=== PATIENT | male | born 1975 | race American Indian/Alaskan Native ===

== ENCOUNTER 2019-02-16 21:38 | Emergency (ER) | payer SELFPAY ==
[2019-02-16] MEDS ORDERED: dexAMETHasone 4 MG/ML VIAL IV ONE (21:50)
[2019-02-16] MEDS ORDERED: SODIUM CHLORIDE 0.9% 1000 ML 1,000 ML IV ONE (21:50)
--- NOTE | 2019-02-16 21:54 | Event Note ---
ED Screening Note ED Screening Note: mandibular abscess concern for ludwigs trismus severe pain saw oral surg yesterday started on po antibiotics difficult to swallow This initial assessment/diagnostic orders/clinical plan/treatment(s) is/are subject to change based on patients health status, clinical progression and re- assessment by fellow clinical providers in the ED. Further treatment and workup at subsequent clinical providers discretion. Patient/guardian urged not to elope from the ED as their condition may be serious if not clinically assessed and managed. Initial orders include: labs ct
[2019-02-16 22:49] LABS: Basophils # (Auto) 0.1 K/mm3 (0.0-0.1); Basophils % (Auto) 0.9 % (0.0-1.8); Eosinophils # (Auto) 0.2 K/mm3 (0.0-0.4); Hematocrit 38.8 % (35.5-45.6); Lymphocytes # (Auto) 1.7 K/mm3 (1.2-5.4); Lymphocytes % (Auto) 30.5 % (13.4-35.0); Mean Corpuscular HGB Conc 33 % (32-34); Mean Corpuscular Volume 101 fl (84-94); Monocytes # (Auto) 0.8 K/mm3 (0.0-0.8); Monocytes % (Auto) 14.5 % (0.0-7.3); Platelet Count 244 K/mm3 (140-440); Red Blood Count 3.85 M/mm3 (3.65-5.03); Red Cell Distribution Width 12.3 % (13.2-15.2)
[2019-02-16 23:11] LABS: BUN/Creatinine Ratio 9; Blood Urea Nitrogen 10 mg/dL (9-20); Calcium 9.4 mg/dL (8.4-10.2); Hemolysis Index 4
[2019-02-16] MEDS ORDERED: MORPHINE 4 MG/1 ML INJ IV ONE (23:27)
[2019-02-16] MEDS ORDERED: KETOROLAC 30 MG/1 ML INJ IV ONE (23:27)
[2019-02-16] MEDS ORDERED: ONDANSETRON 4 MG/2 ML INJ IV ONE (23:27)
--- NOTE | 2019-02-17 00:06 | Emergency Department Report ---
ED ENT HPI - General Chief complaint: Dental/Oral Stated complaint: RT JAW PAIN Time Seen by Provider: 02/16/19 21:48 Source: patient Mode of arrival: Ambulatory Limitations: No Limitations - History of Present Illness Initial comments: 43-year-old male with no significant past medical history presents to the Hospital complaining of right lower jaw swelling the last 3 weeks since his was some tooth was extracted. Patient had one tooth removed right lower jaw. Swelling and pain have worsening and currently 10/10 in intensity. Patient denies fever, difficult swallowing, or difficulty breathing. On February 15 patient was prescribed clindamycin 150 mg every 6 hours 84 tablets after being evaluated by the dentist. Patient continues to have worsening swelling despite taking the medication of the last day and a half. OMFS Dr Charan Carlton - Related Data Allergies Allergy/AdvReac Type Severity Reaction Status Date / Time No Known Allergies Allergy Unverified 02/16/19 21:53 ED Dental HPI - General Chief complaint: Dental/Oral Stated complaint: RT JAW PAIN Time Seen by Provider: 02/16/19 21:48 Source: patient Mode of arrival: Ambulatory Limitations: No Limitations - Related Data Allergies Allergy/AdvReac Type Severity Reaction Status Date / Time No Known Allergies Allergy Unverified 02/16/19 21:53 ED Review of Systems ROS: Stated complaint: RT JAW PAIN Other details as noted in HPI Comment: All other systems reviewed and negative ED Past Medical Hx - Past Medical History Previous Medical History?: No - Surgical History Past Surgical History?: Yes Additional Surgical History: [place] Tooth - Social History Smoking Status: Never Smoker Substance Use Type: None ED Physical Exam - General Limitations: No Limitations - Other Other exam information: General: No limitations, patient is alert in no acute distress Head exam: Atraumatic, normocephalic Eyes exam: Normal appearance, pupils equal reactive to light, extraocular movements intact ENT: Moist mucous membrane, right sided mandible swelling and tenderness without noticeable gum swelling or gum abscess. Posterior pharynx without swelling with uvula midline. Floor of mouth soft. Neck exam: Normal inspection, full range of motion, no meningismus nontender Respiratory exam: Clear to auscultation bilateral, no wheezes, rales, crackles Cardiovascular: Normal rate and rhythm, normal heart sounds Abdomen: Soft, nondistended, and nontender, with normal bowel sounds, no rebound, or guarding Extremity: Full range of motion normal inspection no deformity Back: Normal Inspection, full range of motion, no tenderness Neurologic: Alert, oriented x3, cranial nerves intact, no motor or sensory deficit Psychiatric: normal affect, normal mood Skin: Warm, dry, intact ED Course Vital Signs 02/16/19 21:43 Temperature 98.3 F Pulse Rate 94 H Respiratory 16 Rate Blood Pressure 114/79 O2 Sat by Pulse 97 Oximetry ED Medical Decision Making - Lab Data Result diagrams: 02/16/19 22:27 02/16/19 22:27 Lab Results 02/16/19 02/16/19 Range/Units 22:27 22:27 WBC 5.6 (4.5-11.0) K/mm3 RBC 3.85 (3.65-5.03) M/mm3 Hgb 13.0 (11.8-15.2) gm/dl Hct 38.8 (35.5-45.6) % MCV 101 H (84-94) fl MCH 34 H (28-32) pg MCHC 33 (32-34) % RDW 12.3 L (13.2-15.2) % Plt Count 244 (140-440) K/mm3 Lymph % (Auto) 30.5 (13.4-35.0) % Jackson % (Auto) 14.5 H (0.0-7.3) % Eos % (Auto) 3.0 (0.0-4.3) % Baso % (Auto) 0.9 (0.0-1.8) % Lymph # 1.7 (1.2-5.4) K/mm3 Jackson # 0.8 (0.0-0.8) K/mm3 Eos # 0.2 (0.0-0.4) K/mm3 Baso # 0.1 (0.0-0.1) K/mm3 Seg Neutrophils % 51.1 (40.0-70.0) % Seg Neutrophils # 2.8 (1.8-7.7) K/mm3 Sodium 142 (137-145) mmol/L Potassium 4.1 (3.6-5.0) mmol/L Chloride 103.9 (98-107) mmol/L Carbon Dioxide 26 (22-30) mmol/L Anion Gap 16 mmol/L BUN 10 (9-20) mg/dL Creatinine 1.1 (0.8-1.5) mg/dL Estimated GFR > 60 ml/min BUN/Creatinine Ratio 9 % Glucose 91 (75-100) mg/dL Calcium 9.4 (8.4-10.2) mg/dL - Radiology Data Radiology results: report reviewed NECK CT 02/16/2019 HISTORY: Neck pain. Possible dental abscess. FINDINGS: Contrast enhanced CT images of the soft tissues of the neck were obtained. Prominent area of lucency is present in the right posterior mandible, consistent with recent dental extraction or tooth loss. The osseous defect contains some air, which would be consistent with open process or recent surgery or dental procedure. Along the lateral margin of the right mandible, adjacent to the osseous lucency, 2 cm area of hypoattenuation is present, which may be evidence of inflammation or abscess. This is best seen on axial image 31 and coronal images 40-51. A very small focal area of osseous dehiscence along the lateral margin of the mandible, adjacent to the bony lucency, is present adjacent to this fluid collection. There are no other areas of soft tissue or fluid abnormality. There is a normal CT appearance to the parotid and submandibular glands. Soft tissue structures in the neck are otherwise unremarkable. IMPRESSION: Right posterior mandibular dental lucency as described above, with adjacent 2 [address] All [address] scans at this location are performed using dose reduction to ALARA by means of automated exposure control. - Medical Decision Making pt tx with 1 dose of decadron and IV clindamycin toradol for pain ct noted- copy provided to pt airway patent no signs of ludwigs or sepsis rec to increase clinda dose to 450 mg q 8 hours for dental abscess dose of med f/u with Charan Carlton dds advised - Differential Diagnosis dental abscess, cellulitis Critical Care Time: No Critical care attestation.: If time is entered above; I have spent that time in minutes in the direct care of this critically ill patient, excluding procedure time. ED Disposition Clinical Impression: Status post wisdom tooth extraction, Dental abscess Disposition: TO HOME OR SELFCARE Is pt being admited?: No Does the pt Need Aspirin: No Condition: Stable Instructions: Dental Abscess (ED) Additional Instructions: Take the medication as prescribed. Increase your clindamycin dose to three 150mg tablets every 8 hours. You new dose is therefore 450mg every 8 hours (450mg 3 times a day). Follow up with your oral surgeon. Take the copy of the cat scan report provided to your follow up appointment. Return if symptoms worsen as indicated by your discharge instructions. Referrals: Charan Carlton DDS [Other] - 2-3 Days Time of Disposition: 01:26
[2019-02-17] MEDS ORDERED: dexAMETHasone 4 MG/ML VIAL ONE (00:20)
--- NOTE | 2019-02-17 00:26 | Cat Scan Report ---
NECK CT 02/16/2019 HISTORY: Neck pain. Possible dental abscess. FINDINGS: Contrast enhanced CT images of the soft tissues of the neck were obtained. Prominent area of lucency is present in the right posterior mandible, consistent with recent dental e xtraction or tooth loss. The osseous defect contains some air, which would be consistent with open pr ocess or recent surgery or dental procedure. Along the lateral margin of the right mandible, adjacent to the osseous lucency, 2 cm area of hypoatt enuation is present, which may be evidence of inflammation or abscess. This is best seen on axial sid ge 31 and coronal images 40-51. A very small focal area of osseous dehiscence along the lateral roderick n of the mandible, adjacent to the bony lucency, is present adjacent to this fluid collection. There are no other areas of soft tissue or fluid abnormality. There is a normal CT appearance to the parotid and submandibular glands. Soft tissue structures in the neck are otherwise unremarkable. IMPRESSION: Right posterior mandibular dental lucency as described above, with adjacent 2 cm fluid co llection. All CT scans at this location are performed using dose reduction to ALARA by means of automated expos ure control. Signer Name: Jose Manuel Chávez MD Signed: 02/17/2019 12:22 AM Workstation Name: [id number]
[2019-02-17 01:33] VITALS: BP 106/71
== END 2019-02-17 01:44 | disposition home or self-care (01) ==
LOC: ED 21:38
DX: K04.7 Periapical abscess without sinus (principal); Z98.890 Other specified postprocedural states
CPT/HCPCS: 36415; 70491; 80048; 85025; 96365; 96375; 99284; J1100; J1885; J2270; J2405; J7030; Q9967